=== PATIENT | male | born 1970 | race Hispanic/Latino ===

== ENCOUNTER → 2016-10-15 | Outpatient (CLI) | payer OTHER ==
[2016-10-15 17:28] LABS: BASOPHILS # (AUTO) 0.09 10*3/UL; BASOPHILS % (AUTO) 1.1 % (0-1); HEMATOCRIT 45.3 % (42.0-52.0); HEMOGLOBIN 16.1 g/dL (14.0-18.0); IMM GRAN % (AUTO) 0.2 % (0-5); IMM GRAN# (AUTO) 0.02 10*3/UL; LYMPHOCYTES # (AUTO) 3.75 10*3/uL; LYMPHOCYTES % (AUTO) 46.1 % (10-50); MEAN CORPUSCULAR HEMOGLOBIN 28.5 PG (27-31); MEAN CORPUSCULAR HGB CONC 35.5 g/dL (33-37); MEAN PLATELET VOLUME 10.4 FL (7.4-12.2); MONOCYTES # (AUTO) 0.51 10*3/UL (0.3-0.8); MONOCYTES % (AUTO) 6.3 % (5-15); NEUTROPHILS # (AUTO) 3.61 10*3/UL; NEUTROPHILS % (AUTO) 44.3 % (50-80); RDW COEFFICIENT OF VARIATION 14.7 % (11.5-14.5); RED BLOOD COUNT 5.65 10^6/uL (4.70-6.10); WHITE BLOOD COUNT 8.14 10^3/uL (4.8-10.8)
[2016-10-15 17:29] LABS: ASPARTATE AMINO TRANSFERASE 26 IU/L (21-57); BILIRUBIN,TOTAL 0.7 mg/dL (0.3-1.2); BLOOD UREA NITROGEN 14 mg/dL (7-22); BUN/CREATININE RATIO 15.55 (6-20); CALCIUM 8.9 mg/dL (8.7-10.7); CHLORIDE 101 meq/L (98-112); CREATININE 0.9 mg/dL (0.70-1.50); EST GLOMERULAR FILTRATION > 60 (>60 ml/min/1.73m(2)); GLUCOSE 136 mg/dL (78-110); POTASSIUM 3.2 meq/L (3.8-5.2); SODIUM 139 meq/L (135-145); TOTAL PROTEIN 7.1 g/dL (6.1-8.0)
[2016-10-15 17:30] LABS: PROTHROMBIN TIME 10.6 secs (9.7-11.4)
--- NOTE | 2016-10-15 17:32 | EKG ---
[address] [place] [address] Measurements Intervals Dora Rate: 67 P: 25 RI: 160 QRS: -44 QRSD: 107 T: -26 QT: 347 QTc: 362 Interpretive Statements SINUS RHYTHM WITH SINUS ARRHYTHMIA MARKED LEFT AXIS DEVIATION WITH LEFT ANTERIOR FASICULAR BLOCK PATTERN CONSISTENT WITH PULMONARY DISEASE NONSPECIFIC T-WAVE ABNORMALITY No previous ECG available for comparison Electronically Signed On 10-16-16 17:16:01 [facility] by Josh Licea [email or web address]
[2016-10-15 17:36] LABS: PLATELET MORPHOLOGY COMMENT NORMAL MORPHOLOGY (NORM)
== END ==
LOC: LAB 17:01
PROVIDERS: ATTEND Orthopaedic Surgery
DX: M54.5 Low back pain (principal); I44.4 Left anterior fascicular block
CPT/HCPCS: 36415; 80053; 85025; 85610; 85730; 87641; 93005; 93010

== ENCOUNTER → 2016-12-14 | Outpatient (CLI) | payer OTHER ==
[2016-12-14 13:01] LABS: BLOOD UREA NITROGEN 17 mg/dL (7-22); BUN/CREATININE RATIO 18.88 (6-20); CALCIUM 9.3 mg/dL (8.7-10.7); CHOL/HDL RATIO 4.42 RATIO (0-4.0); EST GLOMERULAR FILTRATION > 60 (>60 ml/min/1.73m(2)); HDL CHOLESTEROL 35 mg/dL (40-150); HEMOGLOBIN A1C 5.69 % (4.2-6.0); SERUM ALBUMIN 4.4 g/dL (3.5-4.8); SERUM CHOLESTEROL 155 mg/dL (120-200)
[2016-12-14 13:26] LABS: FREE T4 (FREE THYROXINE) 0.97 ng/dL (0.93-1.71)
== END ==
LOC: LAB 12:34
PROVIDERS: ATTEND Family Medicine
DX: I10 Essential (primary) hypertension (principal); E29.1 Testicular hypofunction; E66.9 Obesity, unspecified; Z13.1 Encounter for screening for diabetes mellitus
CPT/HCPCS: 80053; 80061; 83036; 84403; 84439; 84443

== ENCOUNTER → 2016-12-24 | Outpatient (CLI) | payer OTHER | LOC: MOB LAB 14:41 | PROVIDERS: ATTEND Family Medicine | DX: E29.1 Testicular hypofunction (principal); F17.200 Nicotine dependence, unspecified, uncomplicated; Z12.5 Encounter for screening for malignant neoplasm of prostate | CPT/HCPCS: 36415; 84403; G0103 ==